=== PATIENT | male | born 1975 | race Caucasian/White ===

== ENCOUNTER 2023-02-21 01:57 | Emergency (ER) | payer BC, SELFPAY ==
--- NOTE | 2023-02-21 01:58 | XRR_ITS ---
PROCEDURE INFORMATION: Exam: XR Chest Exam date and time: 02/21/2023 2:04 AM Age: 47 years old Clinical indication: Cough TECHNIQUE: Imaging protocol: Radiologic exam of the chest. Views: 1 view. COMPARISON: No relevant prior studies available. FINDINGS: Lungs: Unremarkable. No consolidation. Pleural spaces: Unremarkable. No pleural effusion. No pneumothorax. Heart/Mediastinum: Unremarkable. No cardiomegaly. Bones/joints: Unremarkable. XR/XR chest 1V portable [id number] IMPRESSION: No acute findings.
[2023-02-21 02:02] VITALS: BP 148/113; PULSE 102; RESP 22; TEMP 36.9; O2SAT 98; BMI 44.3
[2023-02-21 02:08] VITALS: O2SAT 96
--- NOTE | 2023-02-21 02:09 | W.ED.URI ---
HPI - URI/Sore Throat General: Chief Complaint: Upper Respiratory Infection Stated Complaint: cough,fever Time Seen by Provider: 02/21/23 01:58 Source: patient Mode of arrival: ambulatory Limitations: no limitations History of Present Illness: 47-year-old male states that over the last week he has been having cough and congestion states had some slight green sputum production. He has had some pains with coughing he denies any severe shortness of breath no recent fever she denies any worsening proving factors. Associated symptoms: Deny abdominal pain, chills, chest pain, diarrhea, fever(s), headache(s), nausea or vomiting Review of Systems Const: Denies: fever(s), chills, body aches or change in appetite Eyes: Denies: eye discomfort ENMT: Denies: throat pain or dental pain Card: Denies: chest pain Resp: Reports: productive cough; Denies: dyspnea GI: Denies: abdominal pain, nausea, vomiting or diarrhea Musc: Denies: neck pain or back pain Skin/Breast: Denies: rash Neuro: Denies: headache(s) Physical Exam Const: COMMON NORMALS: no acute distress, patient oriented x3 and healthy appearing HENMT: COMMON NORMALS: normocephalic and atraumatic HEAD & SCALP: normocephalic and atraumatic Eye: COMMON NORMALS: conjunctivae normal CONJUNCTIVA: Yes conjunctivae normal Neck/C-Spine: COMMON NORMALS: supple Chest: COMMONS NORMALS: normal inspection of the chest Resp: COMMON NORMALS: normal respiratory effort, No retractions, No use of accessory muscles and clear to auscultation bilaterally AUSCULTATION: clear to auscultation bilaterally Cardio: COMMON NORMALS: regular rate, regular rhythm and No murmurs present (Cardio) RATE: regular rate RHYTHM: regular rhythm GI: INSPECTION: Yes normal to inspection Extremity: COMMON NORMALS: normal to inspection and full ROM Neuro: COMMON NORMALS: patient oriented x3, moves all extremities and no focal motor deficits Psych: COMMON NORMALS: mental status grossly normal, Normal thought process present and cooperative THOUGHT PROCESS: Normal thought process present Skin: COMMON NORMALS: no rashes or lesions noted and no wounds GENERAL SKIN EXAM: no rashes or lesions noted Course Vital Signs: Vital signs: Vital Signs Temperature 98.4 F 02/21/23 02:02 Pulse Rate 102 H 02/21/23 02:02 Respiratory Rate 22 H 02/21/23 02:02 Blood Pressure 148/113 02/21/23 02:02 Pulse Oximetry 96 02/21/23 02:08 Oxygen Delivery Me thod Room Air 02/21/23 02:08 MDM - URI/Sore Throat Medical Decision Making Patient presents with cough congestion likely viral upper restaurant infection he is in no distress here no signs of pneumonia viral panel was ordered and is pending he is stable for discharge she is to follow-up with PCP and return if worsening. Medical Records I reviewed the patient's medical records. Lab Data I reviewed the patient's lab results. Discharge Plan Discharge Patient Disposition: Home Clinical Impression: Upper respiratory infection Condition: Stable Discharge Orders: Discharge ED (Routine); Ordered 02/21/23 Ordered By: Kulwinder Garcia Discharge Diet: Advance as tolerated Discharge Activity: Resume usual activity Patient Instructions: Upper Respiratory Infection (ED) Coding Level of Care Code ED Sales Representative [employer] for Kailey Landrum
[2023-02-21] MEDS: dexamethasone 10 mg/mL INJ IM (02:32)
[2023-02-21 03:01] VITALS: BP 136/93; PULSE 96; RESP 18; O2SAT 97
== END 2023-02-21 03:04 | disposition home or self-care (01) ==
PROVIDERS: Emergency Provider Emergency Medicine
DX: J06.9 Acute upper respiratory infection, unspecified (principal)
CPT/HCPCS: 71045; 96372; 99284; J1100